=== PATIENT | male | born 1935 | race Caucasian/White ===

== ENCOUNTER 2025-07-14 15:43 | Emergency (ER) | payer MEDICARE, SELFPAY ==
[2025-07-14 16:07] VITALS: BP 146/87; PULSE 78; RESP 18; TEMP 36.3; O2SAT 94; BMI 36.3
--- NOTE | 2025-07-14 16:09 | XR_ITS ---
Examination: CT abdomen and pelvis without contrast. Coronal 3-D reconstructions. Sagittal 2-D reconstructions. Date and time: July 14, 2025 1821 hrs. Indications: Urinary retention difficulty urinating today CTDI: vol (mGy): 12.7 DLP: (mGycm): 901 Technique: Axial images of the abdomen have been obtained, 3 mm slice thickness Intravenous contrast material has not been administered. Low dose protocols were performed. One or more of the following dose reduction techniques were used; automated exposure control, adjustment of the mA and/or KV according to patient size, use of iterative reconstruction technique. Findings: Liver and splenic calcifications No gallstones. No pancreatic mass No adrenal mass 6.5 cm medial left renal cyst Bilateral 1 to 4 mm renal calculi, no hydronephrosis or ureteral calculi Abdominal aortic calcification no aneurysmal dilatation No pericecal inflammatory change Colonic diverticulosis, no diverticulitis Distended urinary bladder with 12 mm bladder calculus Significant prostatomegaly transverse dimension 6.5 cm Abundant stool in the rectum with thickening the rectal wall Prominent osteopenia Advanced disc narrowing L4-L5, L5-S1 Impression: Nonobstructing bilateral renal calculi Distended urinary bladder, likely secondary to the patient's significant prostatomegaly 12 mm bladder calculus Abundant stool in the rectum with thickening of the rectal wall, differential would include proctitis
--- NOTE | 2025-07-14 16:49 | PD.EDMALE ---
ED Male Genitalurinary RME/HPI General Chief complaint: Urogenital-Male Stated complaint: URINARY RETENTION Time Seen by Provider: 07/14/25 16:28 Arrival date/time: 07/14/25 15:43 RME / HPI RME / HPI Narrative: 89-year-old male patient with significant history of BPH, came in for evaluation regarding dysuria, urgency, and urinary retention. Has been ongoing for several days, saw PCP yesterday and was started on ciprofloxacin. Patient denies any fever denies any vomiting denies any abdominal pain denies any other complaints no medication was taken prior to ER visit Related Data Previous Rx's ?Medication ?Instructions ?Recorded tamsulosin 0.4 mg capsule (Flomax) 0.4 mg PO QDAY #30 caps 07/14/25 Allergies Allergy/AdvReac Type Severity Reaction Status Date / Time OPIOIDS Allergy Uncoded 07/14/25 15:46 Review of Systems Review of Systems Narrative Review of Systems: Review of system reviewed and within normal limits except mentioned in HPI ED Exam Narrative Physical exam: VITAL SIGNS: Reviewed. GENERAL APPEARANCE: Alert and interactive, follows commands, no acute distress, HEAD AND FACE: Non-traumatic. ENT: PERRL, pink conjunctivitis, eyelid no trauma, Mucous membrane moist. NECK: Supple, nontender, no nuchal rigidity. CHEST: No tenderness, no crepitus, no paradoxical movement, no retractions. LUNGS: Clear, well ventilated, symmetric, no rales, no wheezing, no ronchi, no stridor, good breath sounds bilaterally. HEART: Regular rate, regular rhythm, no murmur, no gallops. ABDOMEN: Soft, positive bowel sounds, nondistended, no guarding, nontender, no rebound, no masses, RECTAL: Deferred. GENITAL: Deferred. NEUROLOGICAL: Gross motor function intact sensory function intact, Appropriate for age. MUSCULOSKELETAL: low back nontender, full range of motion. EXTREMITIES: Nontender, full range of motion. SKIN: Color pink, dry, no rash, no lacerations, no abrasions, no contusions. LYMPHATICS: Deferred. Course Quality Measures none Orders Category Date Time Status Goodwin [Urinary Catheter] NOW Care 07/14/25 16:[address] abdomen pelvis wo con Stat Exams 07/14/25 16:09 Completed CBC Stat Lab 07/14/25 16:54 Completed Comprehensive Metabolic Panel Stat Lab 07/14/25 16:54 Completed UA, C/S IF [Urinalysis, C/S if Indicated] Stat Lab 07/14/25 16:58 Completed Urine Culture Stat Lab 07/14/25 16:58 Received Magnesium Citrate Liqd [Citrate of Magnesia Liqd] Med 07/14/25 18:35 Discontinued 300 ml PO X1 ONE Tamsulosin HCl [Flomax] Med 07/14/25 18:40 Discontinued 0.4 mg PO X1 ONE Vital Signs Vital signs: Vital Signs Temperature 97.4 F 07/14/25 16:07 Pulse Rate 78 07/14/25 16:07 Respiratory Rate 18 07/14/25 16:07 Blood Pressure 146/87 H 07/14/25 16:07 Pulse Oximetry (%) 94 L 07/14/25 16:07 Oxygen Delivery Method Room Air 07/14/25 16:07 Urogenital - Male [facility] Narrative MDM Narrative:: 89-year-old male patient with significant history of BPH, came in for evaluation regarding dysuria, urgency, and urinary retention. Has been ongoing for several days, saw PCP yesterday and was started on ciprofloxacin. Patient denies any fever denies any vomiting denies any abdominal pain denies any other complaints no medication was taken prior to ER visit Patient's laboratory workup all came back unremarkable. Urinalysis no UTI. CT scan of the abdomen and pelvis showed Nonobstructing bilateral renal calculi Distended urinary bladder, likely secondary to the patient's significant prostatomegaly 12 mm bladder calculus Abundant stool in the rectum with thickening of the rectal wall, differential would include proctitis Goodwin catheter was inserted and was able to drain more than 2 L of clear urine. Patient verbalized significant improvement in symptoms. Patient was also given mag citrate and Flomax in the emergency room. He told me that he had a scheduled for urologist appointment in 1 week Patient data External records reviewed:: None Clinical information provided by:: patient Social determinants that could affect healthcare access:: none Patient has the following chronic illnesses:: BPH How is presenting disease/condition affected by chronic disease/condition?: exacerbated by Evaluation data The following diagnostics were reviewed and interpreted by me:: lab results and radiology exam(s) Lab and/or radiology exams considered but not ordered:: None Interpretation Summary: See results MDM Medications / Prescriptions Medications or Prescriptions considered but not ordered:: None Medication administrations:: Medication Administration History Discontinued Medications Magnesium Citrate (Magnesium Citrate 300 Ml Btl) 300 ml PO X1 ONE Stop: 07/14/25 18:36 Last Admin: 07/14/25 18:51 Dose: 300 ml Documented By: SAMUEL Tamsulosin HCl (Tamsulosin Hcl 0.4 Mg Capsule) 0.4 mg PO X1 ONE Stop: 07/14/25 18:41 Last Admin: 07/14/25 18:51 Dose: 0.4 mg Documented By: SAMUEL Mag citrate and Flomax Consultations Consultation(s) initiated? (list below): No Diagnosis Urogenital Male Differential Diagnosis: urinary tract infection, prostatitis and acute retention of urine Most likely diagnosis given after review of the tests above:: Acute urinary retention, constipation, enlarged prostate Admission Indicated Admission indicated?: not indicated Explain why admission is indicated or not indicated:: None Admission Request Was there a request for admission?: No Disposition Plan Disposition Plan: Discharge Discharge Attestation Discharge Attestation: The patient and all family members were given an opportunity to ask questions and understood the discharge instructions. Discharge instructions specifically effects, indications for sooner follow up or return to the emergency department, and the expected course of current diagnosis. Patient condition: Stable Discharge Plan Plan Patient Disposition: HOME (Self Care) Discharge Disposition comment: Stable Prescriptions/Referrals Prescriptions/Med Rec: New tamsulosin [Flomax] 0.4 mg capsule 0.4 mg PO QDAY Qty: 30 0RF Referrals: Tate Whitt MD [Primary Care Provider] - In 1 week Problem List Clinical Impression: Acute urinary retention, UTI (urinary tract infection), Prostate enlargement, Constipation Patient/Caregiver Discharge Instructions Discharge Activity: activity as tolerated Education Materials: ED BPH (Enlarged Prostate) Additional Instructions: Thank you for the opportunity for serving you today. You are stable for discharged . You are advised to: Follow-up with your PCP in 1 to 2 days Return to ED for worsening of symptoms Increase oral fluids Take medication as prescribed Follow-up with your urologist next week Print Language: Citizen Of [place] Stand Alone Forms: Sugar Award Info., Patient Portal Info Letter
[2025-07-14 16:55] VITALS: BP 172/96; PULSE 74; RESP 15; TEMP 37
[2025-07-14 17:11] LABS: Collection Type, Urine Clean Catch
[2025-07-14 17:12] LABS: Basophils # (Auto) 0.0 Thou/mm3 (0.0-0.2); Basophils % (Auto) 1 % (0-2.5); Eosinophils # (Auto) 0.6 Thou/mm3 (0.0-0.5); Eosinophils % (Auto) 7 % (0-10); Hematocrit 39.1 % (41.0-53.0); Hemoglobin 13.1 g/dL (13.5-16.0); Immature Granulocytes Auto 0.02 Thou/mm3 (0.00-0.00); Lymphocytes # (Auto) 1.5 Thou/mm3 (1.0-4.8); Lymphocytes % (Auto) 18 % (10-50); Mean Corpuscular HGB Conc 33.5 g/dl (31.0-37.0); Mean Corpuscular Hemoglobin 30.7 pg (25.0-35.0); Mean Corpuscular Volume 92 fL (80-100); Monocytes # (Auto) 0.9 Thou/mm3 (0.0-0.8); Monocytes % (Auto) 10 % (0-12); Neutrophils # (Auto) 5.4 Thou/mm3 (1.8-7.7); Neutrophils % (Auto) 64 % (37-80); Nucleated Red Blood Cell # 0.00 Thou/mm3 (0.00-0.00); Nucleated Red Blood Cell % 0 /100 WBC (0); Platelet Count 205 Thou/mm3 (140-440); RDW Standard Deviation 48.2 fL (35.1-43.9); Red Blood Count 4.27 Miln/mm3 (4.50-5.90); White Blood Count 8.4 Thou/mm3 (3.8-10.6)
[2025-07-14 17:19] LABS: Bilirubin,Urine 1+ (Negative); Blood,Urine 1+ (Negative); Clarity,Urine Clear (Clear/Hazy); Color,Urine Drk-Yellow (Lt Yel-Yel); Glucose, Urine Negative (Negative); Ketones,Urine Negative (Negative); Leukocyte Esterase,Urine Negative (Negative); Nitrite,Urine Positive (Negative); PH,Urine 6.0 (5.0-7.0); Protein,Urine Negative (Neg - Trace); RBC,Urine 34 /hpf (0-3); Specific Gravity,Urine 1.017 (1.001-1.035); Squamous Epithelial Cell,Urine < 1 /hpf (0-5); Urobilinogen,Urine 2.0 mg/dL (0.0-1.0); WBC,Urine < 1 /hpf (0-5)
[2025-07-14 17:23] LABS: Culture Indicated,Urine Yes
[2025-07-14 17:28] LABS: Alanine Aminotransferase 11 U/L (10-49); Albumin, Serum 3.9 gm/dL (3.4-4.8); Albumin/Globulin Ratio 1.6 (1.2-2.2); Alkaline Phosphatase 74 U/L (46-116); Anion Gap 10 (7-16); Aspartate Amino Transferase 19 U/L (0-34); BUN/Creatinine Ratio 10 Ratio (12-20); Bilirubin,Total 0.9 mg/dL (0.3-1.2); Blood Urea Nitrogen 12 mg/dL (9-23); Calcium 9.0 mg/dL (8.3-10.6); Calcium (Corrected) 9.1 mg/dL (8.5-10.1); Carbon Dioxide 23.6 mMol/L (20.0-31.0); Chloride 103 mMol/L (98-107); Creatinine (Component) 1.2 mg/dL (0.6-1.3); Estimated Creatinine Clearance 55.7 mL/min (>60); Globulin 2.4 gm/dL (2.3-3.5); Glucose 182 mg/dL (74-106); Osmolality,Calculated 278 (275-295); Potassium 4.1 mMol/L (3.4-5.1); Sodium 137 mMol/L (136-145); Total Protein 6.3 gm/dL (5.7-8.2); eGFR 58 See Note
[2025-07-14 18:30] VITALS: BP 145/80; PULSE 74; RESP 17; TEMP 36.7; O2SAT 96
[2025-07-14] MEDS: TAMSULOSIN HCL 0.4 MG CAPSULE PO (18:51)
[2025-07-14] MEDS: MAGNESIUM CITRATE 300 ML BTL PO (18:51)
== END 2025-07-14 19:13 | disposition home or self-care (01) ==
PROVIDERS: Nurse Practitioner Primary Care; Emergency Provider Emergency Medicine; PCP Internal Medicine
DX: N40.1 Benign prostatic hyperplasia with lower urinary tract symptoms (principal); R33.8 Other retention of urine; K59.00 Constipation, unspecified; N39.0 Urinary tract infection, site not specified
CPT/HCPCS: 51702; 36415; 74176; 80053; 81001; 85025; 87086; 99284; A4314; A9270